=== PATIENT | female | born 1990 | race African-American/Black ===

== ENCOUNTER 2018-10-20 19:16 | Observation (INO) ==
[2018-10-20] MEDS ORDERED: SODIUM CHLORIDE 0.9% 1,000 ML IV STA (22:10)
[2018-10-20] MEDS ORDERED: CIPROFLOXACIN INJ 400 MG in PREMIX 1 EACH IV STA (22:11)
[2018-10-20] MEDS ORDERED: PROMETHAZINE 25 MG/1 ML VIAL IM STA (22:11)
[2018-10-20 22:20] LABS: Basophils % 0.3 % (0.0-0.8); Eosinophils # 0.1 10*3/uL (0.0-0.87); Eosinophils % 0.7 % (0.00-10.9); Hemoglobin 11.7 GM/DL (12.0-16.0); Immature Granulocytes % 0.5 %; Immature Granulocytes Absolute 0.07 #; Lymphocytes # 2.7 10*3/uL (1.4-4.0); Lymphocytes % 20.7 % (21.3-54.2); Mean Corpuscular HGB Conc 32.5 GM/DL (32-36); Mean Corpuscular Volume 85.9 FL (87-102); Mean Platelet Volume 9.2 FL (9.6-12.0); Monocytes % 10.5 % (1.7-12.7); Neutrophils % 67.3 % (38.7-73.9); Platelet Count 343 T/CUMM (130-400); Red Blood Count 4.19 MC/CUMM (3.8-5.5); Red Cell Distribution Width 12.4 % (9.3-17.3); White Blood Count 13.2 T/CUMM (4-12)
[2018-10-20 22:34] LABS: Apearance,Urine CLEAR (Clear); Bacteria,Urine Occasional /HPF (Few); Bilirubin,Urine Negative (Negative); Blood, Urine Large mg/dL (Negative); Glucose,Urine (UA) Negative (Negative); Ketones,Urine 5 mg/dL (Negative); Mucus,Urine Many /LPF (Occasional); Nitrite,Urine Negative (Negative); Protein,Urine 30 MG/DL; RBC,Urine 31 /HPF (0-4); Squamous Epithelial Cell,Urine Occasional /HPF (0-10); Urine Color Yellow (Yellow); Urine Specific Gravity 1.027 (1.001-1.035); Urine Urobilinogen < 2.0 EU/DL (0.2-1.0); WBC,Urine 2 /HPF (0-6)
[2018-10-20 22:39] LABS: Barbiturates Screen,Urine Negative (Negative); Benzodiazepines Screen,Urine Negative (Negative); Cannabinoid Screen,Urine Negative (Negative); Opiate Screen,Urine Positive (Negative); Phencyclidine Screen,Urine Negative (Negative)
[2018-10-20 22:45] LABS: Albumin 3.8 G/DL (3.4-5.0); Bilirubin,Total 0.4 MG/DL (0.2-1.0); Calcium 9.5 MG/DL (8.5-10.1); Osmolality,Calculated 271.7 MOS/KG (273-304); Total Protein 9.4 G/DL (6.4-8.3)
[2018-10-21] MEDS ORDERED: ACETAMINOPHEN 500 MG TABLET PO STA (01:23)
[2018-10-21 06:50] LABS: Basophils % 0.1 % (0.0-0.8); Eosinophils # 0.1 10*3/uL (0.0-0.87); Eosinophils % 1.1 % (0.00-10.9); Hematocrit 31.2 VOL% (35.7-47.0); Hemoglobin 10.4 GM/DL (12.0-16.0); Immature Granulocytes % 0.5 %; Immature Granulocytes Absolute 0.05 #; Lymphocytes # 2.5 10*3/uL (1.4-4.0); Mean Corpuscular HGB Conc 33.3 GM/DL (32-36); Mean Corpuscular Volume 85.5 FL (87-102); Monocytes % 10.1 % (1.7-12.7); Neutrophils % 63.2 % (38.7-73.9); Platelet Count 287 T/CUMM (130-400); Red Blood Count 3.65 MC/CUMM (3.8-5.5); Red Cell Distribution Width 12.3 % (9.3-17.3)
[2018-10-21 07:22] LABS: Albumin 2.9 G/DL (3.4-5.0); Bilirubin,Total 0.6 MG/DL (0.2-1.0); Calcium 8.4 MG/DL (8.5-10.1); Osmolality,Calculated 272.7 MOS/KG (273-304); Total Protein 7.5 G/DL (6.4-8.3)
[2018-10-21] MEDS: PANTOPRAZOLE 40 MG TABLET PO SCH (09:34)
[2018-10-21] MEDS: metroNIDAZOLE INJ 500 MG in PREMIX 1 EACH IV SCH ×2 (10:25→18:13)
[2018-10-21] MEDS: ENOXAPARIN 40 MG/0.4 ML SYRINGE SUBCUT SCH (10:25)
[2018-10-21] MEDS: CIPROFLOXACIN INJ 400 MG in PREMIX 1 EACH IV SCH (13:03)
[2018-10-21] MEDS: PROMETHAZINE 25 MG/1 ML VIAL IM PRN ×2 (14:16→21:56)
[2018-10-21] MEDS: HYOSCYAMINE 0.125 MG TABLET PO SCH (22:31)
[2018-10-22] MEDS: CIPROFLOXACIN INJ 400 MG in PREMIX 1 EACH IV SCH ×2 (00:31→11:02)
[2018-10-22] MEDS: metroNIDAZOLE INJ 500 MG in PREMIX 1 EACH IV SCH ×2 (02:56→09:26)
[2018-10-22] MEDS: HYOSCYAMINE 0.125 MG TABLET PO SCH ×2 (05:40→05:42)
[2018-10-22] MEDS: ENOXAPARIN 40 MG/0.4 ML SYRINGE SUBCUT SCH (08:02)
[2018-10-22] MEDS: PANTOPRAZOLE 40 MG TABLET PO SCH (08:03)
[2018-10-22 08:35] VITALS: BP 107/68
[2018-10-22] MEDS: PROMETHAZINE 25 MG/1 ML VIAL IM PRN (09:25)
== END 2018-10-22 12:16 | disposition home or self-care (01) ==
LOC: N.EDINP 19:16 → N.ED 19:16 → SUATTDRO 10-21 03:40 → N.3E 10-21 04:10
PROVIDERS: ADMIT Internal Medicine; ATTEND Internal Medicine

== ENCOUNTER 2018-12-17 14:54 | Observation (INO) ==
[2018-12-17] MEDS ORDERED: PANTOPRAZOLE 40 MG VIAL IV STA (15:29)
[2018-12-17] MEDS ORDERED: methylPREDNISolone SOD SUC 125 MG/2 ML VIAL IV STA (15:29)
[2018-12-17] MEDS ORDERED: metroNIDAZOLE INJ 500 MG in PREMIX 1 EACH IV STA (15:29)
[2018-12-17] MEDS ORDERED: SODIUM CHLORIDE 0.9% 1,000 ML IV STA ×2 (15:29→17:44)
[2018-12-17] MEDS ORDERED: fentaNYL 100 MCG/2 ML VIAL IV STA (15:29)
[2018-12-17] MEDS ORDERED: ONDANSETRON 4 MG/2 ML VIAL IV STA (15:29)
[2018-12-17] MEDS ORDERED: DICYCLOMINE 20 MG/2 ML AMP IM ONE (15:29)
[2018-12-17] MEDS ORDERED: LEVOFLOXACIN INJ 750 MG in PREMIX 1 EACH IV STA (15:29)
[2018-12-17 15:38] LABS: Basophils % 0.3 % (0.0-0.8); Eosinophils # 0.2 10*3/uL (0.0-0.87); Eosinophils % 1.7 % (0.00-10.9); Hematocrit 35.5 VOL% (35.7-47.0); Hemoglobin 11.2 GM/DL (12.0-16.0); Immature Granulocytes % 0.4 %; Immature Granulocytes Absolute 0.06 #; Lymphocytes # 2.3 10*3/uL (1.4-4.0); Lymphocytes % 17.1 % (21.3-54.2); Mean Corpuscular HGB Conc 31.5 GM/DL (32-36); Mean Corpuscular Volume 89.6 FL (87-102); Monocytes % 5.5 % (1.7-12.7); Platelet Count 306 T/CUMM (130-400); Red Blood Count 3.96 MC/CUMM (3.8-5.5); Red Cell Distribution Width 13.5 % (9.3-17.3); White Blood Count 13.6 T/CUMM (4-12)
[2018-12-17 15:44] LABS: Apearance,Urine Slightly Hazy (Clear); Bilirubin,Urine Negative (Negative); Blood, Urine Moderate mg/dL (Negative); Glucose,Urine (UA) Negative (Negative); Ketones,Urine Negative (Negative); Mucus,Urine Occasional /LPF (Occasional); Nitrite,Urine Negative (Negative); Protein,Urine Negative; RBC,Urine 6 /HPF (0-4); Squamous Epithelial Cell,Urine Few /HPF (0-10); Urine Color Yellow (Yellow); Urine Specific Gravity 1.013 (1.001-1.035); Urine Urobilinogen < 2.0 EU/DL (0.2-1.0); WBC,Urine 3 /HPF (0-6)
[2018-12-17 16:04] LABS: Alanine Aminotransferase 20 U/L (13-56); Albumin 3.9 G/DL (3.4-5.0); Alkaline Phosphatase 77 U/L (45-117); Aspartate Amino Transferase 20 U/L (0-37); Bilirubin,Total < 0.39 MG/DL (0.2-1.0); Blood Urea Nitrogen 6 MG/DL (7-18); Calcium 8.7 MG/DL (8.5-10.1); Glucose 101 MG/DL (74-106); Osmolality,Calculated 276.4 MOS/KG (273-304); Total Protein 8.2 G/DL (6.4-8.3)
[2018-12-17] MEDS ORDERED: PROMETHAZINE 25 MG/1 ML VIAL IM STA (16:10)
[2018-12-17] MEDS ORDERED: PROMETHAZINE 25 MG/1 ML VIAL ONE (16:11)
[2018-12-17] MEDS ORDERED: ACETAMINOPHEN 325 MG TABLET PO PRN (18:38)
[2018-12-17] MEDS ORDERED: DICYCLOMINE 20 MG TABLET PO PRN (18:50)
[2018-12-17] MEDS ORDERED: KETOROLAC 30 MG/1 ML VIAL IV PRN (18:51)
[2018-12-17] MEDS ORDERED: POTASSIUM CHLORIDE 20 MEQ TABLET PO ONE (18:56)
[2018-12-17] MEDS: LACTULOSE 20 GM/30 ML UDCUP PO SCH (21:09)
[2018-12-17] MEDS: DOCUSATE SODIUM 100 MG CAPSULE PO SCH (21:10)
[2018-12-17] MEDS: SODIUM CHLORIDE 0.9% 1,000 ML IV SCH (21:10)
[2018-12-17] MEDS: ZALEPLON 5 MG CAPSULE PO PRN (22:47)
[2018-12-17] MEDS: PROMETHAZINE 25 MG TABLET PO PRN (22:47)
[2018-12-18 01:10] LABS: Basophils % 0.1 % (0.0-0.8); Hematocrit 31.7 VOL% (35.7-47.0); Hemoglobin 10.3 GM/DL (12.0-16.0); Immature Granulocytes % 0.3 %; Immature Granulocytes Absolute 0.04 #; Lymphocytes # 0.8 10*3/uL (1.4-4.0); Lymphocytes % 6.2 % (21.3-54.2); Mean Corpuscular HGB Conc 32.5 GM/DL (32-36); Mean Platelet Volume 9.2 FL (9.6-12.0); Monocytes % 0.7 % (1.7-12.7); Neutrophils % 92.7 % (38.7-73.9); Platelet Count 274 T/CUMM (130-400); Red Blood Count 3.56 MC/CUMM (3.8-5.5); Red Cell Distribution Width 13.4 % (9.3-17.3); White Blood Count 12.3 T/CUMM (4-12)
[2018-12-18 01:41] LABS: Albumin 3.3 G/DL (3.4-5.0); Bilirubin,Total 0.5 MG/DL (0.2-1.0); Calcium 8.6 MG/DL (8.5-10.1); Osmolality,Calculated 280.3 MOS/KG (273-304); Thyroid Stimulating Hormone 0.151 uIU/ml (0.358-3.74); Total Protein 7.1 G/DL (6.4-8.3)
[2018-12-18] MEDS: LACTULOSE 20 GM/30 ML UDCUP PO SCH ×3 (02:00→18:02)
[2018-12-18 03:36] LABS: Anisocytosis 1+; Lymphocytes 8 % (20-55); Platelet Estimate Adequate; Segmented Neutrophils 92 % (50-85); Total Cells Counted 100
[2018-12-18] MEDS: SODIUM CHLORIDE 0.9% 1,000 ML IV SCH ×3 (05:42→23:56)
[2018-12-18] MEDS: PROMETHAZINE 25 MG TABLET PO PRN ×2 (07:39→20:36)
[2018-12-18] MEDS: PANTOPRAZOLE 40 MG TABLET PO SCH (10:37)
[2018-12-18] MEDS: DOCUSATE SODIUM 100 MG CAPSULE PO SCH ×2 (10:38→20:37)
[2018-12-18] MEDS: VANCOMYCIN 50 MG/ML 60 ML/BOTTLE PO SCH ×3 (13:10→23:26)
[2018-12-18] MEDS: ZALEPLON 5 MG CAPSULE PO PRN (20:36)
[2018-12-18] MEDS ORDERED: methylPREDNISolone SOD SUC 125 MG/2 ML VIAL IV ONE (22:47)
[2018-12-18] MEDS ORDERED: FAMOTIDINE INJ 40 MG in SODIUM CHLORIDE 0.9% 100 ML IV ONE (23:00)
[2018-12-18] MEDS: diphenhydrAMINE 50 MG/1 ML VIAL IV PRN (23:16)
[2018-12-19] MEDS: LACTULOSE 20 GM/30 ML UDCUP PO SCH (03:41)
[2018-12-19] MEDS: PROMETHAZINE 25 MG TABLET PO PRN (04:29)
[2018-12-19] MEDS: SODIUM CHLORIDE 0.9% 1,000 ML IV SCH (04:30)
[2018-12-19] MEDS: VANCOMYCIN 50 MG/ML 60 ML/BOTTLE PO SCH (06:07)
[2018-12-19 06:39] LABS: Basophils % 0.1 % (0.0-0.8); Hematocrit 31.5 VOL% (35.7-47.0); Hemoglobin 9.9 GM/DL (12.0-16.0); Immature Granulocytes % 0.8 %; Immature Granulocytes Absolute 0.07 #; Lymphocytes # 0.9 10*3/uL (1.4-4.0); Lymphocytes % 9.6 % (21.3-54.2); Mean Corpuscular HGB Conc 31.4 GM/DL (32-36); Mean Platelet Volume 9.6 FL (9.6-12.0); Monocytes % 0.8 % (1.7-12.7); Neutrophils % 88.7 % (38.7-73.9); Platelet Count 261 T/CUMM (130-400); Red Blood Count 3.46 MC/CUMM (3.8-5.5); Red Cell Distribution Width 14.1 % (9.3-17.3)
[2018-12-19 07:02] LABS: Calcium 7.7 MG/DL (8.5-10.1); Osmolality,Calculated 284.8 MOS/KG (273-304)
[2018-12-19 07:40] VITALS: BP 109/70
[2018-12-19] MEDS: DOCUSATE SODIUM 100 MG CAPSULE PO SCH (08:59)
[2018-12-19] MEDS: diphenhydrAMINE 50 MG/1 ML VIAL IV PRN (08:59)
[2018-12-19] MEDS: PANTOPRAZOLE 40 MG TABLET PO SCH (09:00)
== END 2018-12-19 10:45 | disposition home or self-care (01) ==
LOC: N.ED 14:54 → N.EDINP 14:54 → SUATTDRO 18:38 → N.2E 20:01
PROVIDERS: ADMIT Internal Medicine; ATTEND Phlebology

== ENCOUNTER 2019-08-03 22:38 | Inpatient (IN) ==
[2019-08-03] MEDS ORDERED: HYDROmorphone 2 MG/1 ML VIAL IV STA (23:20)
[2019-08-03] MEDS ORDERED: SODIUM CHLORIDE 0.9% 1,000 ML IV STA (23:20)
[2019-08-03] MEDS ORDERED: ONDANSETRON 4 MG/2 ML VIAL IV STA (23:20)
[2019-08-03] MEDS ORDERED: PANTOPRAZOLE 40 MG VIAL IV STA (23:20)
[2019-08-04 00:10] LABS: Basophils # 0.1 10*3/uL (0.0-0.2); Basophils % 0.3 % (0.0-0.8); Eosinophils # 0.1 10*3/uL (0.0-0.87); Eosinophils % 0.3 % (0.00-10.9); Hematocrit 36.2 VOL% (35.7-47.0); Hemoglobin 11.5 GM/DL (12.0-16.0); Immature Granulocytes % 0.5 %; Immature Granulocytes Absolute 0.09 #; Lymphocytes # 1.2 10*3/uL (1.4-4.0); Lymphocytes % 6.9 % (21.3-54.2); Mean Corpuscular HGB Conc 31.8 GM/DL (32-36); Mean Corpuscular Volume 88.3 FL (87-102); Mean Platelet Volume 9.7 FL (9.6-12.0); Monocytes % 4.4 % (1.7-12.7); Neutrophils % 87.6 % (38.7-73.9); Platelet Count 302 T/CUMM (130-400); Red Cell Distribution Width 13.2 % (9.3-17.3); White Blood Count 17.4 T/CUMM (4-12)
[2019-08-04 00:30] LABS: Apearance,Urine CLOUDY (Clear); Bilirubin,Urine Negative (Negative); Blood, Urine Large mg/dL (Negative); Glucose,Urine (UA) Negative (Negative); Ketones,Urine Negative (Negative); Mucus,Urine Many /LPF (Occasional); Nitrite,Urine Negative (Negative); Protein,Urine Negative; RBC,Urine 63 /HPF (0-4); Squamous Epithelial Cell,Urine Occasional /HPF (0-10); Urine Color Yellow (Yellow); Urine Specific Gravity 1.025 (1.001-1.035); Urine Urobilinogen < 2.0 EU/DL (0.2-1.0); WBC,Urine 15 /HPF (0-6)
[2019-08-04] MEDS ORDERED: LEVOFLOXACIN 750 MG TABLET PO STA (00:43)
[2019-08-04 01:16] LABS: Albumin 4.1 G/DL (3.4-5.0); Bilirubin,Total 0.5 MG/DL (0.2-1.0); Osmolality,Calculated 272.7 MOS/KG (273-304); Total Protein 8.4 G/DL (6.4-8.3)
[2019-08-04] MEDS ORDERED: CIPROFLOXACIN INJ 400 MG in PREMIX 1 EACH IV STA (01:22)
[2019-08-04] MEDS ORDERED: HYDROmorphone 2 MG/1 ML VIAL IV ONE (01:24)
[2019-08-04] MEDS ORDERED: PROMETHAZINE 25 MG/1 ML VIAL IM STA (01:33)
[2019-08-04] MEDS ORDERED: PROMETHAZINE 25 MG/1 ML VIAL ONE (01:35)
[2019-08-04] MEDS ORDERED: ACETAMINOPHEN 325 MG TABLET PO PRN (01:42)
[2019-08-04] MEDS ORDERED: GLUCAGON 1 MG VIAL IM PRN (01:42)
[2019-08-04] MEDS ORDERED: NICOTINE 21 MG/24 HR PATCH TRANSDERM PRN (01:42)
[2019-08-04] MEDS ORDERED: hydrALAZINE 20 MG/1 ML VIAL IV PRN (01:42)
[2019-08-04] MEDS ORDERED: guaiFENesin/DM ER 600-30 MG TABLET PO PRN (01:42)
[2019-08-04] MEDS ORDERED: ALBUTEROL 2.5 MG/3 ML NEB RESP TX PRN (01:42)
[2019-08-04] MEDS ORDERED: DEXTROSE 50% 25 GM/50 ML VIAL IV PRN (01:42)
[2019-08-04] MEDS: SODIUM CHLORIDE 0.9% 1,000 ML IV SCH ×3 (03:00→20:53)
[2019-08-04] MEDS: metroNIDAZOLE INJ 500 MG in PREMIX 1 EACH IV SCH ×3 (03:27→20:54)
[2019-08-04] MEDS ORDERED: ONDANSETRON 4 MG/2 ML VIAL IV PRN (04:59)
[2019-08-04] MEDS: MEPERIDINE 25 MG/1 ML VIAL IV PRN ×4 (05:24→20:54)
[2019-08-04 05:37] LABS: Basophils % 0.2 % (0.0-0.8); Eosinophils # 0.1 10*3/uL (0.0-0.87); Eosinophils % 0.5 % (0.00-10.9); Hematocrit 34.2 VOL% (35.7-47.0); Hemoglobin 10.9 GM/DL (12.0-16.0); Immature Granulocytes % 0.3 %; Immature Granulocytes Absolute 0.05 #; Lymphocytes # 1.7 10*3/uL (1.4-4.0); Lymphocytes % 11.9 % (21.3-54.2); Mean Corpuscular HGB Conc 31.9 GM/DL (32-36); Mean Platelet Volume 9.8 FL (9.6-12.0); Monocytes % 6.5 % (1.7-12.7); Neutrophils % 80.6 % (38.7-73.9); Platelet Count 300 T/CUMM (130-400); Red Blood Count 3.93 MC/CUMM (3.8-5.5); Red Cell Distribution Width 13.2 % (9.3-17.3); White Blood Count 14.4 T/CUMM (4-12)
[2019-08-04 05:57] LABS: Calcium 8.5 MG/DL (8.5-10.1); Osmolality,Calculated 274.5 MOS/KG (273-304)
[2019-08-04] MEDS ORDERED: PANTOPRAZOLE 40 MG TABLET PO SCH (09:00)
[2019-08-04] MEDS: DOCUSATE SODIUM 100 MG CAPSULE PO SCH ×2 (09:13→20:54)
[2019-08-04] MEDS: POLYETHYLENE GLYCOL POWDER 17 GM PACK PO SCH (09:14)
[2019-08-04] MEDS: CIPROFLOXACIN INJ 400 MG in PREMIX 1 EACH IV SCH (16:36)
[2019-08-05] MEDS: CIPROFLOXACIN INJ 400 MG in PREMIX 1 EACH IV SCH ×2 (01:02→15:00)
[2019-08-05] MEDS: MEPERIDINE 25 MG/1 ML VIAL IV PRN ×3 (01:05→14:48)
[2019-08-05] MEDS: metroNIDAZOLE INJ 500 MG in PREMIX 1 EACH IV SCH ×2 (02:06→11:17)
[2019-08-05] MEDS: SODIUM CHLORIDE 0.9% 1,000 ML IV SCH ×2 (02:08→11:19)
[2019-08-05] MEDS: DICYCLOMINE 20 MG TABLET PO PRN (04:35)
[2019-08-05 06:12] LABS: Basophils % 0.6 % (0.0-0.8); Eosinophils # 0.2 10*3/uL (0.0-0.87); Eosinophils % 2.7 % (0.00-10.9); Hematocrit 29.4 VOL% (35.7-47.0); Hemoglobin 9.5 GM/DL (12.0-16.0); Immature Granulocytes % 0.1 %; Immature Granulocytes Absolute 0.01 #; Lymphocytes # 2.6 10*3/uL (1.4-4.0); Lymphocytes % 37.1 % (21.3-54.2); Mean Corpuscular HGB Conc 32.3 GM/DL (32-36); Mean Platelet Volume 9.9 FL (9.6-12.0); Monocytes % 8.3 % (1.7-12.7); Neutrophils % 51.2 % (38.7-73.9); Platelet Count 252 T/CUMM (130-400); Red Blood Count 3.34 MC/CUMM (3.8-5.5); Red Cell Distribution Width 13.5 % (9.3-17.3)
[2019-08-05 06:35] LABS: Albumin 3.1 G/DL (3.4-5.0); Bilirubin,Total 0.5 MG/DL (0.2-1.0); Calcium 7.9 MG/DL (8.5-10.1); Osmolality,Calculated 274.4 MOS/KG (273-304); Total Protein 6.7 G/DL (6.4-8.3)
[2019-08-05] MEDS ORDERED: POTASSIUM CHLORIDE 20 MEQ TABLET PO ONE (08:35)
[2019-08-05] MEDS ORDERED: PANTOPRAZOLE 40 MG VIAL IV SCH (09:00)
[2019-08-05] MEDS ORDERED: ZALEPLON 5 MG CAPSULE PO PRN (09:28)
[2019-08-05] MEDS: DOCUSATE SODIUM 100 MG CAPSULE PO SCH (11:02)
[2019-08-05] MEDS: POLYETHYLENE GLYCOL POWDER 17 GM PACK PO SCH (11:02)
[2019-08-05] MEDS ORDERED: ONDANSETRON ODT 4 MG TABLET PO PRN (15:37)
[2019-08-05] MEDS ORDERED: CIPROFLOXACIN 500 MG TABLET PO SCH (21:00)
[2019-08-05] MEDS: metroNIDAZOLE 500 MG TABLET PO SCH (22:55)
[2019-08-06] MEDS: DICYCLOMINE 20 MG TABLET PO PRN (03:40)
[2019-08-06 04:51] LABS: Calcium 8.5 MG/DL (8.5-10.1); Osmolality,Calculated 275.4 MOS/KG (273-304)
[2019-08-06 05:09] LABS: Basophils % 0.4 % (0.0-0.8); Eosinophils # 0.2 10*3/uL (0.0-0.87); Eosinophils % 2.6 % (0.00-10.9); Hematocrit 33.7 VOL% (35.7-47.0); Hemoglobin 10.5 GM/DL (12.0-16.0); Immature Granulocytes % 0.3 %; Immature Granulocytes Absolute 0.02 #; Lymphocytes # 2.9 10*3/uL (1.4-4.0); Lymphocytes % 37.9 % (21.3-54.2); Mean Corpuscular HGB Conc 31.2 GM/DL (32-36); Mean Corpuscular Volume 89.9 FL (87-102); Mean Platelet Volume 9.7 FL (9.6-12.0); Monocytes % 8.4 % (1.7-12.7); Neutrophils % 50.4 % (38.7-73.9); Platelet Count 280 T/CUMM (130-400); Red Blood Count 3.75 MC/CUMM (3.8-5.5); Red Cell Distribution Width 13.5 % (9.3-17.3); White Blood Count 7.6 T/CUMM (4-12)
[2019-08-06] MEDS: metroNIDAZOLE 500 MG TABLET PO SCH (06:20)
[2019-08-06 07:19] VITALS: BP 101/54
[2019-08-06 22:07] LABS: CDT Result Negative (Negative); CDT Specimen Source STOOL
== END 2019-08-06 08:59 | disposition home or self-care (01) | DRG 249 ==
LOC: EDBD → EDUNIT# → N.ED 22:38 → N.EDINP 08-04 01:42 → SUATTDRO 08-04 01:42 → N.EDINP 08-04 02:52 → N.5E 08-04 03:52
PROVIDERS: ADMIT Internal Medicine; ATTEND Internal Medicine

== ENCOUNTER 2020-01-21 18:49 | Inpatient (IN) ==
[2020-01-21] MEDS ORDERED: SODIUM CHLORIDE 0.9% 1,000 ML IV STA (19:19)
[2020-01-21] MEDS ORDERED: PROMETHAZINE 25 MG/1 ML VIAL IM STA (19:29)
[2020-01-21 19:34] LABS: Basophils # 0.1 10*3/uL (0.0-0.2); Basophils % 0.3 % (0.0-0.8); Eosinophils # 0.1 10*3/uL (0.0-0.87); Eosinophils % 0.3 % (0.00-10.9); Hematocrit 42.9 VOL% (35.7-47.0); Hemoglobin 14.3 GM/DL (12.0-16.0); Immature Granulocytes % 0.4 %; Immature Granulocytes Absolute 0.08 #; Lymphocytes % 9.5 % (21.3-54.2); Mean Corpuscular HGB Conc 33.3 GM/DL (32-36); Mean Corpuscular Volume 89.2 FL (87-102); Monocytes % 3.6 % (1.7-12.7); Neutrophils % 85.9 % (38.7-73.9); Platelet Count 395 T/CUMM (130-400); Red Blood Count 4.81 MC/CUMM (3.8-5.5); Red Cell Distribution Width 13.2 % (9.3-17.3); White Blood Count 21.1 T/CUMM (4-12)
[2020-01-21 19:48] LABS: Alanine Aminotransferase 19 U/L (13-56); Albumin 4.4 G/DL (3.4-5.0); Alkaline Phosphatase 106 U/L (45-117); Aspartate Amino Transferase 23 U/L (0-37); Bilirubin,Total < 0.39 MG/DL (0.2-1.0); Blood Urea Nitrogen 6 MG/DL (7-18); Calcium 9.8 MG/DL (8.5-10.1); Estimated Glom Filtration Rate 85 ML/MIN; Glucose 100 MG/DL (74-106); Osmolality,Calculated 270.8 MOS/KG (273-304); Total Protein 9.9 G/DL (6.4-8.3)
[2020-01-21] MEDS ORDERED: HYDROmorphone 2 MG/1 ML VIAL IV STA ×2 (20:01→21:13)
[2020-01-21 20:13] LABS: Eosinophils 1 % (0-10); Lymphocytes 10 % (20-55); Segmented Neutrophils 87 % (50-85); Total Cells Counted 100
[2020-01-21 20:16] LABS: Apearance,Urine CLEAR (Clear); Bilirubin,Urine Moderate mg/dL (Negative); Blood, Urine Small mg/dL (Negative); Glucose,Urine (UA) Negative (Negative); Ketones,Urine 5 mg/dL (Negative); Mucus,Urine Occasional /LPF (Occasional); Nitrite,Urine Negative (Negative); Protein,Urine 100 MG/DL; RBC,Urine 12 /HPF (0-4); Squamous Epithelial Cell,Urine Occasional /HPF (0-10); Urine Color Amber (Yellow); Urine Specific Gravity 1.031 (1.001-1.035); WBC,Urine 1 /HPF (0-6)
[2020-01-21] MEDS ORDERED: PIPERACILLIN/TAZOBACTAM 3,375 MG in SODIUM CHLORIDE 0.9% 100 ML IV STA (20:52)
[2020-01-21] MEDS ORDERED: methylPREDNISolone SOD SUC 125 MG/2 ML VIAL IV ONE (21:14)
[2020-01-21] MEDS ORDERED: SODIUM CHLORIDE 0.9% 1,000 ML IV ONE (21:15)
[2020-01-21] MEDS: MEROPENEM 500 MG in SODIUM CHLORIDE 0.9% 100 ML IV SCH (22:05)
[2020-01-21] MEDS ORDERED: hydrALAZINE 20 MG/1 ML VIAL IV PRN (22:41)
[2020-01-21] MEDS ORDERED: NICOTINE 21 MG/24 HR PATCH TRANSDERM PRN (22:41)
[2020-01-21] MEDS ORDERED: GLUCAGON 1 MG VIAL IM PRN (22:41)
[2020-01-21] MEDS ORDERED: DEXTROSE 50% 25 GM/50 ML VIAL IV PRN (22:41)
[2020-01-21] MEDS ORDERED: guaiFENesin/DM ER 600-30 MG TABLET PO PRN (22:41)
[2020-01-21] MEDS: DEXTROSE 5% NACL 0.9% 1,000 ML IV SCH (23:44)
[2020-01-22] MEDS: HYDROmorphone 2 MG/1 ML VIAL IV PRN ×6 (00:54→23:33)
[2020-01-22] MEDS: PROMETHAZINE 25 MG/1 ML VIAL IM PRN ×3 (00:56→19:14)
[2020-01-22] MEDS ORDERED: diphenhydrAMINE 50 MG/1 ML VIAL IV ONE (01:36)
[2020-01-22] MEDS: MEROPENEM 500 MG in SODIUM CHLORIDE 0.9% 100 ML IV SCH ×4 (04:41→22:28)
[2020-01-22 05:15] LABS: Basophils % 0.1 % (0.0-0.8); Hematocrit 34.1 VOL% (35.7-47.0); Hemoglobin 11.3 GM/DL (12.0-16.0); Immature Granulocytes % 0.4 %; Immature Granulocytes Absolute 0.05 #; Lymphocytes # 0.7 10*3/uL (1.4-4.0); Lymphocytes % 6.2 % (21.3-54.2); Mean Corpuscular HGB Conc 33.1 GM/DL (32-36); Mean Corpuscular Volume 87.2 FL (87-102); Mean Platelet Volume 9.2 FL (9.6-12.0); Monocytes % 0.3 % (1.7-12.7); Platelet Count 331 T/CUMM (130-400); Red Blood Count 3.91 MC/CUMM (3.8-5.5); Red Cell Distribution Width 13.2 % (9.3-17.3); White Blood Count 11.4 T/CUMM (4-12)
[2020-01-22 05:24] LABS: Albumin 3.3 G/DL (3.4-5.0); Bilirubin,Total 0.6 MG/DL (0.2-1.0); Calcium 8.2 MG/DL (8.5-10.1); Osmolality,Calculated 277.5 MOS/KG (273-304); Total Protein 7.6 G/DL (6.4-8.3)
[2020-01-22 05:33] LABS: Hypochromasia 1+; Lymphocytes 6 % (20-55); Platelet Estimate Adequate; Segmented Neutrophils 93 % (50-85); Total Cells Counted 100
[2020-01-22] MEDS: DEXTROSE 5% NACL 0.9% 1,000 ML IV SCH ×3 (07:38→21:08)
[2020-01-22] MEDS: metroNIDAZOLE INJ 500 MG in PREMIX 1 EACH IV SCH ×2 (08:18→15:55)
[2020-01-22] MEDS: diphenhydrAMINE CAP 25 MG CAPSULE PO PRN (08:19)
[2020-01-22] MEDS ORDERED: ENOXAPARIN 40 MG/0.4 ML SYRINGE SUBCUT SCH (09:00)
[2020-01-22] MEDS ORDERED: diphenhydrAMINE 50 MG/1 ML VIAL IV SCH ×2 (09:00→14:00)
[2020-01-22] MEDS: diphenhydrAMINE 50 MG/1 ML VIAL IV PRN ×2 (09:29→23:35)
[2020-01-23] MEDS: metroNIDAZOLE INJ 500 MG in PREMIX 1 EACH IV SCH ×3 (00:05→15:56)
[2020-01-23] MEDS: MEROPENEM 500 MG in SODIUM CHLORIDE 0.9% 100 ML IV SCH ×4 (03:44→21:33)
[2020-01-23] MEDS: HYDROmorphone 2 MG/1 ML VIAL IV PRN ×5 (04:15→21:49)
[2020-01-23 05:04] LABS: Basophils % 0.3 % (0.0-0.8); Eosinophils % 0.2 % (0.00-10.9); Hematocrit 31.1 VOL% (35.7-47.0); Hemoglobin 10.1 GM/DL (12.0-16.0); Immature Granulocytes % 0.4 %; Immature Granulocytes Absolute 0.05 #; Lymphocytes # 3.2 10*3/uL (1.4-4.0); Mean Corpuscular HGB Conc 32.5 GM/DL (32-36); Mean Corpuscular Volume 89.1 FL (87-102); Mean Platelet Volume 9.2 FL (9.6-12.0); Monocytes % 5.9 % (1.7-12.7); Neutrophils % 69.2 % (38.7-73.9); Platelet Count 277 T/CUMM (130-400); Red Blood Count 3.49 MC/CUMM (3.8-5.5); Red Cell Distribution Width 13.7 % (9.3-17.3); White Blood Count 13.2 T/CUMM (4-12)
[2020-01-23 05:27] LABS: Calcium 7.9 MG/DL (8.5-10.1)
[2020-01-23] MEDS: DEXTROSE 5% NACL 0.9% 1,000 ML IV SCH ×3 (07:13→21:32)
[2020-01-23] MEDS: diphenhydrAMINE CAP 25 MG CAPSULE PO PRN (07:28)
[2020-01-23] MEDS: PROMETHAZINE 25 MG/1 ML VIAL IM PRN ×2 (07:29→17:40)
[2020-01-23] MEDS: diphenhydrAMINE 50 MG/1 ML VIAL IV PRN ×2 (07:36→17:41)
[2020-01-23] MEDS: POTASSIUM CHLORIDE RIDER 10 MEQ in PREMIX 1 EACH IV PRN ×5 (09:00→21:35)
[2020-01-23] MEDS ORDERED: SUMAtriptan 25 MG TABLET PO PRN (15:26)
[2020-01-24] MEDS: metroNIDAZOLE INJ 500 MG in PREMIX 1 EACH IV SCH ×4 (00:26→23:37)
[2020-01-24] MEDS: POTASSIUM CHLORIDE RIDER 10 MEQ in PREMIX 1 EACH IV PRN ×2 (00:30→15:04)
[2020-01-24] MEDS: diphenhydrAMINE 50 MG/1 ML VIAL IV PRN ×2 (01:40→09:38)
[2020-01-24] MEDS: HYDROmorphone 2 MG/1 ML VIAL IV PRN ×5 (01:41→20:58)
[2020-01-24] MEDS: MEROPENEM 500 MG in SODIUM CHLORIDE 0.9% 100 ML IV SCH ×4 (03:50→22:41)
[2020-01-24 06:26] LABS: Basophils % 0.3 % (0.0-0.8); Eosinophils # 0.1 10*3/uL (0.0-0.87); Eosinophils % 1.2 % (0.00-10.9); Hematocrit 32.7 VOL% (35.7-47.0); Hemoglobin 10.5 GM/DL (12.0-16.0); Immature Granulocytes % 0.2 %; Immature Granulocytes Absolute 0.02 #; Lymphocytes # 3.1 10*3/uL (1.4-4.0); Lymphocytes % 26.6 % (21.3-54.2); Mean Corpuscular HGB Conc 32.1 GM/DL (32-36); Mean Corpuscular Volume 89.8 FL (87-102); Mean Platelet Volume 9.9 FL (9.6-12.0); Monocytes % 7.4 % (1.7-12.7); Neutrophils % 64.3 % (38.7-73.9); Platelet Count 285 T/CUMM (130-400); Red Blood Count 3.64 MC/CUMM (3.8-5.5); Red Cell Distribution Width 13.6 % (9.3-17.3); White Blood Count 11.6 T/CUMM (4-12)
[2020-01-24] MEDS: DEXTROSE 5% NACL 0.9% 1,000 ML IV SCH ×3 (06:34→23:34)
[2020-01-24 06:57] LABS: Calcium 8.2 MG/DL (8.5-10.1); Osmolality,Calculated 278.1 MOS/KG (273-304)
[2020-01-24] MEDS: PROMETHAZINE 25 MG/1 ML VIAL IM PRN ×3 (08:57→22:41)
[2020-01-24] MEDS: POTASSIUM CHLORIDE 20 MEQ TABLET PO SCH (21:17)
[2020-01-24] MEDS: diphenhydrAMINE CAP 25 MG CAPSULE PO PRN (22:41)
[2020-01-25] MEDS: DEXTROSE 5% NACL 0.9% 1,000 ML IV SCH ×5 (00:47→23:13)
[2020-01-25] MEDS: POTASSIUM CHLORIDE RIDER 10 MEQ in PREMIX 1 EACH IV PRN ×3 (00:58→03:18)
[2020-01-25] MEDS: HYDROmorphone 2 MG/1 ML VIAL IV PRN ×6 (01:05→21:25)
[2020-01-25] MEDS: MEROPENEM 500 MG in SODIUM CHLORIDE 0.9% 100 ML IV SCH ×3 (04:47→17:10)
[2020-01-25 07:01] LABS: Basophils % 0.3 % (0.0-0.8); Eosinophils # 0.2 10*3/uL (0.0-0.87); Eosinophils % 1.7 % (0.00-10.9); Hematocrit 32.7 VOL% (35.7-47.0); Hemoglobin 10.9 GM/DL (12.0-16.0); Immature Granulocytes % 0.3 %; Immature Granulocytes Absolute 0.04 #; Lymphocytes # 2.2 10*3/uL (1.4-4.0); Lymphocytes % 17.4 % (21.3-54.2); Mean Corpuscular HGB Conc 33.3 GM/DL (32-36); Mean Corpuscular Volume 88.9 FL (87-102); Mean Platelet Volume 9.7 FL (9.6-12.0); Monocytes % 7.5 % (1.7-12.7); Neutrophils % 72.8 % (38.7-73.9); Platelet Count 289 T/CUMM (130-400); Red Blood Count 3.68 MC/CUMM (3.8-5.5); Red Cell Distribution Width 13.2 % (9.3-17.3); White Blood Count 12.3 T/CUMM (4-12)
[2020-01-25 07:24] LABS: Calcium 8.4 MG/DL (8.5-10.1); Osmolality,Calculated 274.4 MOS/KG (273-304)
[2020-01-25] MEDS: metroNIDAZOLE INJ 500 MG in PREMIX 1 EACH IV SCH ×3 (08:21→23:13)
[2020-01-25] MEDS: POTASSIUM CHLORIDE 20 MEQ TABLET PO SCH ×2 (08:21→20:45)
[2020-01-25 09:30] LABS: Myeloperoxidase Antibody < 0.2 U
[2020-01-25] MEDS ORDERED: cefTRIAXone 2,000 MG in SYRINGE 1 EACH IV SCH (18:00)
[2020-01-25] MEDS: diphenhydrAMINE CAP 25 MG CAPSULE PO PRN (18:19)
[2020-01-25] MEDS: diphenhydrAMINE 50 MG/1 ML VIAL IV PRN ×2 (18:32→23:13)
[2020-01-26] MEDS: HYDROmorphone 2 MG/1 ML VIAL IV PRN ×2 (03:07→07:51)
[2020-01-26] MEDS: diphenhydrAMINE 50 MG/1 ML VIAL IV PRN (03:14)
[2020-01-26 05:48] LABS: Basophils % 0.3 % (0.0-0.8); Eosinophils # 0.3 10*3/uL (0.0-0.87); Hematocrit 31.5 VOL% (35.7-47.0); Hemoglobin 10.6 GM/DL (12.0-16.0); Immature Granulocytes % 0.2 %; Immature Granulocytes Absolute 0.02 #; Lymphocytes # 1.6 10*3/uL (1.4-4.0); Lymphocytes % 17.3 % (21.3-54.2); Mean Corpuscular HGB Conc 33.7 GM/DL (32-36); Mean Corpuscular Volume 88.5 FL (87-102); Mean Platelet Volume 9.9 FL (9.6-12.0); Monocytes % 7.7 % (1.7-12.7); Neutrophils % 71.5 % (38.7-73.9); Platelet Count 278 T/CUMM (130-400); Red Blood Count 3.56 MC/CUMM (3.8-5.5); Red Cell Distribution Width 12.9 % (9.3-17.3); White Blood Count 9.2 T/CUMM (4-12)
[2020-01-26 06:11] LABS: Calcium 8.1 MG/DL (8.5-10.1); Osmolality,Calculated 277.3 MOS/KG (273-304)
[2020-01-26 07:47] VITALS: BP 115/47
[2020-01-26] MEDS: metroNIDAZOLE INJ 500 MG in PREMIX 1 EACH IV SCH (07:54)
[2020-01-26 14:21] LABS: CDT Result Negative (Negative); CDT Specimen Source STOOL
[2020-01-26 15:49] LABS: Cryptosporidium Antigen Stool Negative (Negative)
== END 2020-01-26 09:32 | disposition home or self-care (01) | DRG 249 ==
LOC: N.ED 18:49 → SUATTDRO 22:41 → N.EDINP 22:41 → N.3E 23:05
PROVIDERS: ADMIT Emergency Medicine; ATTEND Internal Medicine

== ENCOUNTER 2020-10-18 17:40 | Observation (INO) ==
[2020-10-18 19:20] LABS: Basophils % 0.4 % (0.0-0.8); Eosinophils # 0.2 10*3/uL (0.0-0.87); Eosinophils % 1.7 % (0.00-10.9); Hematocrit 36.1 VOL% (35.7-47.0); Hemoglobin 11.5 GM/DL (12.0-16.0); Immature Granulocytes % 0.3 %; Immature Granulocytes Absolute 0.03 #; Lymphocytes # 1.6 10*3/uL (1.4-4.0); Lymphocytes % 18.4 % (21.3-54.2); Mean Corpuscular HGB Conc 31.9 GM/DL (32-36); Mean Corpuscular Volume 90.9 FL (87-102); Mean Platelet Volume 9.2 FL (9.6-12.0); Monocytes % 5.9 % (1.7-12.7); Neutrophils % 73.3 % (38.7-73.9); Platelet Count 377 T/CUMM (130-400); Red Blood Count 3.97 MC/CUMM (3.8-5.5); Red Cell Distribution Width 12.8 % (9.3-17.3); White Blood Count 8.9 T/CUMM (4-12)
[2020-10-18 19:28] LABS: Bilirubin,Urine Negative (Negative); Blood, Urine Small mg/dL (Negative); Glucose,Urine (UA) Negative (Negative); Ketones,Urine Negative (Negative); Mucus,Urine Occasional /LPF (Occasional); Nitrite,Urine Negative (Negative); Protein,Urine Negative; RBC,Urine 3 /HPF (0-4); Squamous Epithelial Cell,Urine Occasional /HPF (0-10); Urine Appearance CLEAR (Clear); Urine Color Straw (Yellow); Urine Specific Gravity 1.009 (1.001-1.035); Urine Urobilinogen < 2.0 EU/DL (0.2-1.0)
[2020-10-18 19:29] LABS: Alanine Aminotransferase 11 U/L (13-56); Albumin 3.9 G/DL (3.4-5.0); Alkaline Phosphatase 81 U/L (45-117); Amylase 48 U/L (25-115); Aspartate Amino Transferase 13 U/L (0-37); Bilirubin,Total < 0.39 MG/DL (0.2-1.0); Blood Urea Nitrogen 6 MG/DL (7-18); Calcium 9.2 MG/DL (8.5-10.1); Carbon Dioxide 22 MMOL/L (21-32); Estimated Glom Filtration Rate 123 ML/MIN; Glucose 86 MG/DL (74-106); Osmolality,Calculated 269.8 MOS/KG (273-304); Potassium 3.4 MMOL/L (3.5-5.1); Sodium 137 MMOL/L (136-145); Total Protein 8.1 G/DL (6.4-8.2)
[2020-10-18] MEDS ORDERED: SODIUM CHLORIDE 0.9% 1,000 ML IV STA ×2 (19:29→21:30)
[2020-10-18] MEDS ORDERED: PROMETHAZINE INJ 12.5 MG in SODIUM CHLORIDE 0.9% 50 ML IV STA ×2 (19:37→20:56)
[2020-10-18] MEDS ORDERED: PROMETHAZINE 25 MG/1 ML VIAL ONE ×2 (19:38→21:17)
[2020-10-18] MEDS ORDERED: DEXTROSE 50% 25 GM/50 ML VIAL IV PRN (21:57)
[2020-10-18] MEDS ORDERED: GLUCAGON 1 MG VIAL IM PRN (21:57)
[2020-10-18] MEDS ORDERED: POTASSIUM CHLORIDE 20 MEQ TABLET PO PRN (22:13)
[2020-10-18] MEDS: SODIUM CHLORIDE 0.9% 1,000 ML IV SCH (22:59)
[2020-10-18] MEDS: PROMETHAZINE 25 MG/1 ML VIAL IM PRN (22:59)
[2020-10-18] MEDS: HYDROmorphone 2 MG/1 ML VIAL IV PRN (22:59)
[2020-10-18] MEDS: ENOXAPARIN 40 MG/0.4 ML SYRINGE SUBCUT SCH (23:06)
[2020-10-19] MEDS: HYDROmorphone 2 MG/1 ML VIAL IV PRN ×5 (02:24→21:01)
[2020-10-19 05:00] LABS: Basophils % 0.5 % (0.0-0.8); Eosinophils # 0.2 10*3/uL (0.0-0.87); Eosinophils % 2.2 % (0.00-10.9); Hematocrit 30.3 VOL% (35.7-47.0); Hemoglobin 9.9 GM/DL (12.0-16.0); Immature Granulocytes % 0.2 %; Immature Granulocytes Absolute 0.02 #; Lymphocytes # 2.9 10*3/uL (1.4-4.0); Lymphocytes % 34.3 % (21.3-54.2); Mean Corpuscular HGB Conc 32.7 GM/DL (32-36); Mean Corpuscular Volume 90.2 FL (87-102); Mean Platelet Volume 9.1 FL (9.6-12.0); Monocytes % 8.6 % (1.7-12.7); Neutrophils % 54.2 % (38.7-73.9); Platelet Count 304 T/CUMM (130-400); Red Blood Count 3.36 MC/CUMM (3.8-5.5); Red Cell Distribution Width 12.9 % (9.3-17.3); White Blood Count 8.3 T/CUMM (4-12)
[2020-10-19 05:21] LABS: Alanine Aminotransferase 11 U/L (13-56); Alkaline Phosphatase 65 U/L (45-117); Aspartate Amino Transferase 10 U/L (0-37); Bilirubin,Total < 0.39 MG/DL (0.2-1.0); Blood Urea Nitrogen 5 MG/DL (7-18); Calcium 7.6 MG/DL (8.5-10.1); Carbon Dioxide 22 MMOL/L (21-32); Estimated Glom Filtration Rate 145 ML/MIN; Glucose 82 MG/DL (74-106); Osmolality,Calculated 281.8 MOS/KG (273-304); Potassium 3.6 MMOL/L (3.5-5.1); Sodium 144 MMOL/L (136-145); Thyroid Stimulating Hormone 0.138 uIU/ml (0.358-3.74); Total Protein 6.4 G/DL (6.4-8.2)
[2020-10-19] MEDS: PROMETHAZINE 25 MG/1 ML VIAL IM PRN ×3 (05:55→21:06)
[2020-10-19] MEDS ORDERED: metroNIDAZOLE 500 MG TABLET PO SCH (09:00)
[2020-10-19] MEDS: PANTOPRAZOLE 40 MG TABLET PO SCH (09:06)
[2020-10-19] MEDS: SODIUM CHLORIDE 0.9% 1,000 ML IV SCH ×2 (15:24→23:30)
[2020-10-19] MEDS: ENOXAPARIN 40 MG/0.4 ML SYRINGE SUBCUT SCH (21:07)
[2020-10-20] MEDS: HYDROmorphone 2 MG/1 ML VIAL IV PRN ×2 (03:10→09:45)
[2020-10-20 04:34] LABS: Basophils % 0.4 % (0.0-0.8); Eosinophils # 0.2 10*3/uL (0.0-0.87); Eosinophils % 2.1 % (0.00-10.9); Hematocrit 29.9 VOL% (35.7-47.0); Hemoglobin 9.5 GM/DL (12.0-16.0); Immature Granulocytes % 0.3 %; Immature Granulocytes Absolute 0.02 #; Lymphocytes # 3.1 10*3/uL (1.4-4.0); Lymphocytes % 39.5 % (21.3-54.2); Mean Corpuscular HGB Conc 31.8 GM/DL (32-36); Mean Corpuscular Volume 92.3 FL (87-102); Monocytes % 8.4 % (1.7-12.7); Neutrophils % 49.3 % (38.7-73.9); Platelet Count 281 T/CUMM (130-400); Red Blood Count 3.24 MC/CUMM (3.8-5.5); Red Cell Distribution Width 13.1 % (9.3-17.3); White Blood Count 7.8 T/CUMM (4-12)
[2020-10-20 04:49] LABS: Calcium 7.8 MG/DL (8.5-10.1); Potassium 3.1 MMOL/L (3.5-5.1)
[2020-10-20] MEDS ORDERED: diphenhydrAMINE CAP 25 MG CAPSULE PO PRN (05:20)
[2020-10-20] MEDS: SODIUM CHLORIDE 0.9% 1,000 ML IV SCH (07:30)
[2020-10-20] MEDS: PANTOPRAZOLE 40 MG TABLET PO SCH (09:44)
[2020-10-20] MEDS: PROMETHAZINE 25 MG/1 ML VIAL IM PRN (10:18)
[2020-10-20] MEDS ORDERED: diphenhydrAMINE CAP 25 MG CAPSULE PO ONE (10:22)
[2020-10-20 10:47] LABS: % Iron Saturation 10.6 % (18-50); Ferritin 20.2 ng/ml (8-252)
[2020-10-20 11:27] VITALS: BP 124/66
[2020-10-20] MEDS ORDERED: FERROUS GLUCONATE 324 MG TABLET PO SCH (12:30)
[2020-10-21 01:11] LABS: Folate 9.38 NG/ML (5.38-24.0)
[2020-10-23 12:37] LABS: Saccharomyces cerevisiae IgA 10.2
== END 2020-10-20 14:12 | disposition home or self-care (01) ==
LOC: N.EDINP 17:40 → N.ED 17:40 → SUATTDRO 21:33 → N.EDINP 10-19 07:45 → N.5E 10-19 08:01
PROVIDERS: ADMIT Internal Medicine; ATTEND Internal Medicine

== ENCOUNTER 2020-10-24 08:26 | Inpatient (IN) ==
[2020-10-24] MEDS ORDERED: SODIUM CHLORIDE 0.9% 1,000 ML IV STA (09:12)
[2020-10-24] MEDS ORDERED: diphenhydrAMINE 50 MG/1 ML VIAL IM STA (09:19)
[2020-10-24] MEDS ORDERED: PROMETHAZINE 25 MG/1 ML VIAL IM STA (09:19)
[2020-10-24 09:41] LABS: Basophils % 0.1 % (0.0-0.8); Eosinophils # 0.2 10*3/uL (0.0-0.87); Eosinophils % 1.2 % (0.00-10.9); Hematocrit 38.4 VOL% (35.7-47.0); Hemoglobin 12.3 GM/DL (12.0-16.0); Immature Granulocytes % 0.5 %; Immature Granulocytes Absolute 0.07 #; Lymphocytes # 0.7 10*3/uL (1.4-4.0); Lymphocytes % 4.6 % (21.3-54.2); Mean Corpuscular Volume 90.6 FL (87-102); Mean Platelet Volume 9.4 FL (9.6-12.0); Monocytes % 3.4 % (1.7-12.7); Neutrophils % 90.2 % (38.7-73.9); Platelet Count 300 T/CUMM (130-400); Red Blood Count 4.24 MC/CUMM (3.8-5.5); Red Cell Distribution Width 12.8 % (9.3-17.3); White Blood Count 15.1 T/CUMM (4-12)
[2020-10-24 09:42] LABS: Bacteria,Urine Occasional /HPF (Few); Bilirubin,Urine Negative (Negative); Blood, Urine Moderate mg/dL (Negative); Glucose,Urine (UA) Negative (Negative); Ketones,Urine Negative (Negative); Mucus,Urine Occasional /LPF (Occasional); Nitrite,Urine Negative (Negative); Protein,Urine Negative; RBC,Urine 8 /HPF (0-4); Urine Appearance CLEAR (Clear); Urine Color Yellow (Yellow); Urine Specific Gravity 1.016 (1.001-1.035); Urine Urobilinogen < 2.0 EU/DL (0.2-1.0)
[2020-10-24 10:02] LABS: Bilirubin,Total 0.4 MG/DL (0.2-1.0); Calcium 9.1 MG/DL (8.5-10.1); Osmolality,Calculated 271.7 MOS/KG (273-304); Potassium 3.3 MMOL/L (3.5-5.1); Total Protein 8.7 G/DL (6.4-8.2)
[2020-10-24 10:03] LABS: Eosinophils 1 % (0-10); Hypochromasia 1+; Lymphocytes 6 % (20-55); Microcytosis Slight; Segmented Neutrophils 89 % (50-85); Total Cells Counted 100
[2020-10-24] MEDS ORDERED: MEROPENEM 1,000 MG in SODIUM CHLORIDE 0.9% 100 ML IV STA (11:28)
[2020-10-24] MEDS ORDERED: MEROPENEM 1,000 MG VIAL ONE (11:38)
[2020-10-24] MEDS ORDERED: HYDROmorphone 2 MG/1 ML VIAL ONE (11:38)
[2020-10-24] MEDS ORDERED: HYDROmorphone 2 MG/1 ML VIAL IV STA (12:22)
[2020-10-24] MEDS ORDERED: ACETAMINOPHEN 325 MG TABLET PO PRN (12:29)
[2020-10-24] MEDS ORDERED: DEXTROSE 50% 25 GM/50 ML VIAL IV PRN (12:29)
[2020-10-24] MEDS ORDERED: GLUCAGON 1 MG VIAL IM PRN (12:29)
[2020-10-24] MEDS ORDERED: ENOXAPARIN 40 MG/0.4 ML SYRINGE SUBCUT SCH (12:30)
[2020-10-24] MEDS: MEROPENEM 500 MG in SODIUM CHLORIDE 0.9% 100 ML IV SCH (18:36)
[2020-10-24] MEDS: SODIUM CHLORIDE 0.9% 1,000 ML IV SCH ×2 (18:36→21:39)
[2020-10-24] MEDS ORDERED: traZODone 50 MG TABLET PO ONE (20:57)
[2020-10-25] MEDS: MEROPENEM 500 MG in SODIUM CHLORIDE 0.9% 100 ML IV SCH ×5 (01:21→18:53)
[2020-10-25 05:28] LABS: Basophils % 0.3 % (0.0-0.8); Eosinophils # 0.1 10*3/uL (0.0-0.87); Eosinophils % 1.2 % (0.00-10.9); Hematocrit 29.9 VOL% (35.7-47.0); Immature Granulocytes % 0.4 %; Immature Granulocytes Absolute 0.03 #; Lymphocytes % 14.4 % (21.3-54.2); Mean Corpuscular HGB Conc 33.4 GM/DL (32-36); Mean Corpuscular Volume 88.5 FL (87-102); Mean Platelet Volume 10.1 FL (9.6-12.0); Monocytes % 6.6 % (1.7-12.7); Neutrophils % 77.1 % (38.7-73.9); Platelet Count 294 T/CUMM (130-400); Red Cell Distribution Width 12.5 % (9.3-17.3)
[2020-10-25 05:46] LABS: Red Blood Count 3.38 MC/CUMM (3.8-5.5); White Blood Count 6.9 T/CUMM (4-12)
[2020-10-25 05:57] LABS: Alanine Aminotransferase 9 U/L (13-56); Albumin 2.8 G/DL (3.4-5.0); Alkaline Phosphatase 68 U/L (45-117); Aspartate Amino Transferase 13 U/L (0-37); Bilirubin,Total < 0.39 MG/DL (0.2-1.0); Blood Urea Nitrogen 4 MG/DL (7-18); Calcium 7.5 MG/DL (8.5-10.1); Carbon Dioxide 22 MMOL/L (21-32); Estimated Glom Filtration Rate 152 ML/MIN; Glucose 81 MG/DL (74-106); Osmolality,Calculated 272.5 MOS/KG (273-304); Potassium 3.1 MMOL/L (3.5-5.1); Sodium 139 MMOL/L (136-145); Total Protein 6.4 G/DL (6.4-8.2)
[2020-10-25] MEDS: SODIUM CHLORIDE 0.9% 1,000 ML IV SCH ×3 (06:05→22:29)
[2020-10-25] MEDS ORDERED: POTASSIUM CHLORIDE 20 MEQ TABLET PO ONE (09:30)
[2020-10-25] MEDS ORDERED: MAGNESIUM SULF RIDER 2 GM/50 ML PREMIX IV ONE (09:30)
[2020-10-25] MEDS: PROMETHAZINE 25 MG TABLET PO PRN (19:32)
[2020-10-25] MEDS ORDERED: traZODone 50 MG TABLET PO ONE (23:32)
[2020-10-26] MEDS: MEROPENEM 500 MG in SODIUM CHLORIDE 0.9% 100 ML IV SCH ×3 (01:10→12:01)
[2020-10-26 04:51] LABS: Basophils % 0.4 % (0.0-0.8); Eosinophils # 0.2 10*3/uL (0.0-0.87); Eosinophils % 4.3 % (0.00-10.9); Hematocrit 29.9 VOL% (35.7-47.0); Hemoglobin 9.5 GM/DL (12.0-16.0); Immature Granulocytes % 0.2 %; Immature Granulocytes Absolute 0.01 #; Lymphocytes # 2.2 10*3/uL (1.4-4.0); Lymphocytes % 44.9 % (21.3-54.2); Mean Corpuscular HGB Conc 31.8 GM/DL (32-36); Mean Corpuscular Volume 91.7 FL (87-102); Mean Platelet Volume 9.5 FL (9.6-12.0); Monocytes % 11.6 % (1.7-12.7); Neutrophils % 38.6 % (38.7-73.9); Platelet Count 284 T/CUMM (130-400); Red Blood Count 3.26 MC/CUMM (3.8-5.5); Red Cell Distribution Width 12.8 % (9.3-17.3); White Blood Count 4.8 T/CUMM (4-12)
[2020-10-26 05:13] LABS: Calcium 7.7 MG/DL (8.5-10.1); Osmolality,Calculated 280.8 MOS/KG (273-304); Potassium 3.4 MMOL/L (3.5-5.1)
[2020-10-26 05:42] LABS: Eosinophils 5 % (0-10); Lymphocytes 40 % (20-55); Segmented Neutrophils 48 % (50-85); Total Cells Counted 100
[2020-10-26 05:43] LABS: Hypochromasia 1+; Platelet Estimate Normal
[2020-10-26] MEDS: SODIUM CHLORIDE 0.9% 1,000 ML IV SCH ×3 (07:46→12:01)
[2020-10-26] MEDS ORDERED: GLYCOPYRROLATE 0.4 MG/2 ML VIAL ONE (08:47)
[2020-10-26] MEDS ORDERED: LIDOCAINE 2% 5 ML VIAL ONE (08:48)
[2020-10-26] MEDS ORDERED: propofoL 200 MG/20 ML VIAL IV ONE (08:48)
[2020-10-26] MEDS ORDERED: LACTATED RINGERS 1,000 ML IV ONE (09:01)
[2020-10-26] MEDS: PROMETHAZINE 25 MG TABLET PO PRN (10:51)
[2020-10-26] MEDS ORDERED: POTASSIUM CHLORIDE 20 MEQ TABLET PO PRN (13:07)
[2020-10-26 16:03] VITALS: BP 120/79
[2020-10-26] MEDS ORDERED: CEFDINIR 300 MG CAPSULE PO SCH (17:00)
== END 2020-10-26 17:55 | disposition left against medical advice (07) | DRG 249 ==
LOC: N.ED 08:26 → SUATTDRO 12:29 → N.EDINP 12:29 → N.3E 14:25
PROVIDERS: ADMIT Internal Medicine; ATTEND Hospitalist

== ENCOUNTER 2021-07-23 15:07 | Inpatient (IN) ==
[2021-07-23 15:45] LABS: Basophils % 0.3 % (0.0-0.8); Eosinophils # 0.1 10*3/uL (0.0-0.87); Eosinophils % 0.7 % (0.00-10.9); Hematocrit 38.6 VOL% (35.7-47.0); Hemoglobin 12.2 GM/DL (12.0-16.0); Immature Granulocytes % 0.3 %; Immature Granulocytes Absolute 0.04 #; Lymphocytes # 2.7 10*3/uL (1.4-4.0); Lymphocytes % 22.3 % (21.3-54.2); Mean Corpuscular HGB Conc 31.6 GM/DL (32-36); Mean Corpuscular Volume 88.7 FL (87-102); Mean Platelet Volume 9.2 FL (9.6-12.0); Monocytes % 5.9 % (1.7-12.7); Neutrophils % 70.5 % (38.7-73.9); Platelet Count 403 T/CUMM (130-400); Red Blood Count 4.35 MC/CUMM (3.8-5.5); Red Cell Distribution Width 13.2 % (9.3-17.3); White Blood Count 12.1 T/CUMM (4-12)
[2021-07-23 15:47] LABS: Mucus,Urine Occasional /LPF (Occasional); RBC,Urine 3 /HPF (0-4)
[2021-07-23 15:48] LABS: Bilirubin,Urine Small mg/dL (Negative); Blood, Urine Moderate mg/dL (Negative); Glucose,Urine (UA) Negative (Negative); Ketones,Urine Negative (Negative); Nitrite,Urine Negative (Negative); Protein,Urine Negative (Negative); Urine Appearance Clear (Clear); Urine Color Yellow (Yellow); Urine Specific Gravity 1.015 (1.001-1.035); Urine Urobilinogen 0.2 eU/dL (<2.0)
[2021-07-23 16:00] LABS: Alanine Aminotransferase 15 U/L (13-56); Albumin 3.9 G/DL (3.4-5.0); Alkaline Phosphatase 92 U/L (45-117); Amylase 135 U/L (25-115); Aspartate Amino Transferase 22 U/L (0-37); Bilirubin,Total < 0.39 MG/DL (0.20-1.00); Blood Urea Nitrogen 9 MG/DL (7-18); Calcium 9.2 MG/DL (8.5-10.1); Carbon Dioxide 28 MMOL/L (21-32); Estimated Glom Filtration Rate 90 ML/MIN; Glucose 125 MG/DL (74-106); Potassium 3.2 MMOL/L (3.5-5.1); Sodium 136 MMOL/L (136-145); Total Protein 8.6 G/DL (6.4-8.2)
[2021-07-23] MEDS ORDERED: SODIUM CHLORIDE 0.9% 1,000 ML IV STA (16:24)
[2021-07-23] MEDS ORDERED: HYDROmorphone 1 MG/1 ML SYRINGE IV STA (16:24)
[2021-07-23] MEDS ORDERED: diphenhydrAMINE 50 MG/1 ML VIAL IV STA (16:27)
[2021-07-23] MEDS ORDERED: CIPROFLOXACIN INJ 400 MG/200 ML PREMIX IV STA (16:56)
[2021-07-23] MEDS ORDERED: PROMETHAZINE 25 MG/1 ML VIAL IM STA (17:45)
[2021-07-23] MEDS ORDERED: MAGNESIUM SULF RIDER 4 GM/100 ML PREMIX IV PRN (19:00)
[2021-07-23] MEDS ORDERED: MAGNESIUM SULF RIDER 2 GM/50 ML PREMIX IV PRN (19:00)
[2021-07-23] MEDS: HYDROmorphone 1 MG/1 ML SYRINGE IV PRN (20:44)
[2021-07-23] MEDS: metroNIDAZOLE INJ 500 MG/100 ML PREMIX IV SCH (22:30)
[2021-07-23] MEDS: POTASSIUM CHLORIDE 20 MEQ TABLET PO PRN (22:45)
[2021-07-23] MEDS: SODIUM CHLORIDE 0.9% 1,000 ML IV SCH (22:57)
[2021-07-24] MEDS: POTASSIUM CHLORIDE 20 MEQ TABLET PO PRN ×3 (01:06→07:31)
[2021-07-24] MEDS: HYDROmorphone 1 MG/1 ML SYRINGE IV PRN ×5 (01:20→21:41)
[2021-07-24] MEDS: PROMETHAZINE 25 MG/1 ML VIAL IM PRN ×3 (01:20→16:02)
[2021-07-24] MEDS: metroNIDAZOLE INJ 500 MG/100 ML PREMIX IV SCH ×4 (03:20→21:41)
[2021-07-24 04:59] LABS: Basophils % 0.3 % (0.0-0.8); Eosinophils # 0.1 10*3/uL (0.0-0.87); Eosinophils % 0.6 % (0.00-10.9); Hematocrit 32.1 VOL% (35.7-47.0); Hemoglobin 10.2 GM/DL (12.0-16.0); Immature Granulocytes % 0.5 %; Immature Granulocytes Absolute 0.05 #; Lymphocytes # 2.1 10*3/uL (1.4-4.0); Lymphocytes % 18.7 % (21.3-54.2); Mean Corpuscular HGB Conc 31.8 GM/DL (32-36); Mean Corpuscular Volume 89.9 FL (87-102); Mean Platelet Volume 9.4 FL (9.6-12.0); Monocytes % 6.3 % (1.7-12.7); Neutrophils % 73.6 % (38.7-73.9); Platelet Count 328 T/CUMM (130-400); Red Blood Count 3.57 MC/CUMM (3.8-5.5); Red Cell Distribution Width 13.1 % (9.3-17.3)
[2021-07-24] MEDS: CIPROFLOXACIN INJ 400 MG/200 ML PREMIX IV SCH ×2 (05:04→16:07)
[2021-07-24 05:19] LABS: Albumin 2.9 G/DL (3.4-5.0); Bilirubin,Total 0.4 MG/DL (0.20-1.00); Calcium 8.5 MG/DL (8.5-10.1); Osmolality,Calculated 280.1 MOS/KG (273-304); Potassium 3.8 MMOL/L (3.5-5.1); Total Protein 6.8 G/DL (6.4-8.2)
[2021-07-24] MEDS: SODIUM CHLORIDE 0.9% 1,000 ML IV SCH ×3 (06:03→16:39)
[2021-07-24] MEDS: PANTOPRAZOLE 40 MG VIAL IV SCH (11:40)
[2021-07-25] MEDS: metroNIDAZOLE INJ 500 MG/100 ML PREMIX IV SCH ×2 (02:52→08:31)
[2021-07-25] MEDS: HYDROmorphone 1 MG/1 ML SYRINGE IV PRN ×2 (02:59→06:33)
[2021-07-25] MEDS: CIPROFLOXACIN INJ 400 MG/200 ML PREMIX IV SCH (04:37)
[2021-07-25] MEDS: SODIUM CHLORIDE 0.9% 1,000 ML IV SCH (04:38)
[2021-07-25 06:07] LABS: Basophils % 0.3 % (0.0-0.8); Eosinophils # 0.1 10*3/uL (0.0-0.87); Eosinophils % 1.8 % (0.00-10.9); Hematocrit 30.6 VOL% (35.7-47.0); Hemoglobin 9.7 GM/DL (12.0-16.0); Immature Granulocytes % 0.3 %; Immature Granulocytes Absolute 0.02 #; Lymphocytes # 1.9 10*3/uL (1.4-4.0); Lymphocytes % 23.9 % (21.3-54.2); Mean Corpuscular HGB Conc 31.7 GM/DL (32-36); Mean Corpuscular Volume 90.5 FL (87-102); Mean Platelet Volume 9.8 FL (9.6-12.0); Monocytes % 9.7 % (1.7-12.7); Platelet Count 319 T/CUMM (130-400); Red Blood Count 3.38 MC/CUMM (3.8-5.5); Red Cell Distribution Width 13.2 % (9.3-17.3)
[2021-07-25 06:24] LABS: Calcium 7.8 MG/DL (8.5-10.1); Osmolality,Calculated 276.3 MOS/KG (273-304); Potassium 3.3 MMOL/L (3.5-5.1)
[2021-07-25] MEDS: PROMETHAZINE 25 MG/1 ML VIAL IM PRN (06:36)
[2021-07-25] MEDS: PANTOPRAZOLE 40 MG VIAL IV SCH (08:33)
[2021-07-25] MEDS ORDERED: CEFUROXIME 500 MG TABLET PO SCH (09:00)
[2021-07-25 09:12] VITALS: BP 97/61
[2021-07-25] MEDS ORDERED: MAGNESIUM SULF RIDER 2 GM/50 ML PREMIX IV ONE (09:30)
[2021-07-25] MEDS ORDERED: diphenhydrAMINE CAP 25 MG CAPSULE PO ONE (09:30)
[2021-07-25] MEDS ORDERED: diphenhydrAMINE CAP 50 MG CAPSULE PO ONE (09:30)
[2021-07-25] MEDS ORDERED: POTASSIUM CHLORIDE 20 MEQ TABLET PO ONE (10:00)
== END 2021-07-25 10:57 | disposition home or self-care (01) | DRG 249 ==
LOC: EDUNIT# → EDBD → N.EDINP 15:07 → N.ED 15:07 → SUATTDRO 19:00 → N.EDINP 07-24 01:22 → N.TELES 07-24 02:41 → SUATTDRO 07-24 07:54
PROVIDERS: ADMIT Family Medicine; ATTEND Internal Medicine